=== PATIENT | male | born 1940 | race Caucasian/White ===

== ENCOUNTER 2017-08-24 09:14 | Inpatient (IN) | payer MEDICARE ==
[~2017-08-24] VITALS: Ht 177.8 cm; Wt 98.1 kg
[~2017-08-24 09:14] MED LIST: AMLO5 PO; BOSULIF500 MG PO; Belladonna-Opi1 EACH PR; CEPH500 PO; Coumadin3 MG PO; DICL75ER PO; DIGO.25 PO; DUTA.5 PO; EC-Naprosyn375 MG PO; FURO40 PO; GABA100 PO; GLIM4 PO; GLIP5ER PO; HYDACE5 PO; HYDR1TAB94 PO; ICLUSIG15 MG PO; LAVAP17G PO; LEVFLO500 PO; LISI20 PO; METF500 PO; MIRALAX17 GM PO; Norco 10-325 T1 EACH PO; OMEP20ER PO; POTA10T PO; POTCHL10ER PO; PRED20 PO; TAMS.4ER PO; Tasigna200 MG PO; WARF2.5 PO
[2017-08-24 10:42] LABS: BASOPHILS ABSOLUTE AUTO 0.07 K/mm3 (0.00-0.23); BASOPHILS PERCENT AUTO 1 % (0-2); EOSINOPHILS ABSOLUTE AUTO 0.11 K/mm3 (0.00-0.68); EOSINOPHILS PERCENT AUTO 1 % (0-6); Hematocrit 40.2 % (37.0-53.0); Hemoglobin 12.6 g/dL (13.5-17.5); IMMATURE GRAN ABSOLUTE AUTO 0.04 K/mm3 (0.00-0.10); IMMATURE GRAN PERCENT AUTO 1 % (0-1); LYMPHOCYTES ABSOLUTE AUTO 0.91 K/mm3 (0.84-5.20); LYMPHOCYTES PERCENT AUTO 11 % (21-46); MONOCYTES ABSOLUTE AUTO 0.58 K/mm3 (0.16-1.47); MONOCYTES PERCENT AUTO 7 % (4-13); Mean Corpuscular HGB 26.8 pg (26.0-34.0); Mean Corpuscular HGB Conc 31.3 g/dL (31.5-36.5); Mean Corpuscular Volume 85 fL (80-100); Mean Platelet Volume 11.6 fL (9.1-12.4); NEUTROPHILS ABSOLUTE AUTO 6.74 K/mm3 (1.96-9.15); NEUTROPHILS PERCENT AUTO 80 % (41-73); Platelet Count 63 K/mm3 (150-400); RDW Coefficient Variation 15.5 % (11.7-14.2); RDW Standard Deviation 47.8 fL (35.1-46.3); Red Blood Cell Count 4.71 M/mm3 (4.30-5.90); White Blood Cell Count 8.45 K/mm3 (4.00-11.30)
[2017-08-24] MEDS ORDERED: OMEPRAZOLE MAGN20 MG PO (10:55)
[2017-08-24 11:55] LABS: Alanine Aminotransfer (ALT/SGP 18 U/L (12-78); Albumin/Globulin Ratio 0.7 (0.8-1.8); Alk Phos 187 U/L (50-136); Anion Gap 10 mmol/L (6-16); Aspartate Aminotrans (AST/SGOT 15 U/L (12-37); Bilirubin, Total 0.7 mg/dL (0.1-1.0); Blood Urea Nitrogen 17 mg/dL (8-24); Bun/Creatinine Ratio 16.5 (12.0-20.0); CO2, Blood 25 mmol/L (21-32); Calcium, Blood 8.5 mg/dL (8.5-10.1); Chloride, Blood 105 mmol/L (98-108); Creatinine, Blood 1.03 mg/dL (0.60-1.20); Globulin, Blood 4.4 g/dL (2.2-4.0); Glomerular Filtration Rate >60 (60-); Glucose, Blood 145 mg/dL (70-99); Potassium, Blood 4.4 mmol/L (3.5-5.5); Sodium, Blood 140 mmol/L (136-145); Total Protein, Blood 7.4 g/dL (6.4-8.2); Troponin I <0.015 ng/mL (0.000-0.040)
[2017-08-24 14:30] LABS: International Normalized Ratio 1.09; Prothrombin Time Results 11.4 Sec (9.7-11.5)
[2017-08-26] MEDS ORDERED: XARELTO15 MG PO (09:50)
[2017-08-27 16:09] LABS: A/G RATIO 0.9 (0.7-1.7); ALBUMIN 3.3 g/dL (2.9-4.4); ALPHA-1-GLOBULIN 0.3 g/dL (0.0-0.4); BETA GLOBULIN 0.8 g/dL (0.7-1.3); GAMMA GLOBULIN 1.4 g/dL (0.4-1.8); GLOBULIN, TOTAL 3.6 g/dL (2.2-3.9); M-SPIKE Not Observed g/dL (Not Observed); PROTEIN, TOTAL, SERUM 6.9 g/dL (6.0-8.5)
== END 2017-08-26 13:50 | disposition home or self-care (01) | DRG 175 ==
LOC: ER 09:14 → MEDS 09:15 → ER 13:38 → MEDS 13:38 → ENPENDDIS 08-26 09:00 → MEDS 08-26 13:50
PROVIDERS: Emergency Medicine; Internal Medicine
DX: I26.99 Other pulmonary embolism without acute cor pulmonale (principal); J96.01 Acute respiratory failure with hypoxia; C91.10 Chronic lymphocytic leukemia of B-cell type not having achieved remission; D69.6 Thrombocytopenia, unspecified; D64.9 Anemia, unspecified; E11.9 Type 2 diabetes mellitus without complications; Z85.89 Personal history of malignant neoplasm of other organs and systems; I51.9 Heart disease, unspecified
CPT/HCPCS: 36415; 71046; 71260; 74177; 80053; 82947; 83690; 83880; 84165; 84484; 85025; 85379; 85610; 85730; 93005; 93010; 93306; 94761; 96365; 96366; 96376; 99285; G0103; G0378; J1644; Q9967

== ENCOUNTER 2017-10-16 09:39 | Day surgery (SDC) | payer MEDICARE, SELFPAY ==
[~2017-10-16 09:39] MED LIST changes: +OMEPRAZOLE MAGN20 MG PO; +XARELTO15 MG PO
== END 2017-10-16 22:37 | disposition home or self-care (01) ==
LOC: CT 09:39
PROC: 07B53ZX Excision of Right Axillary Lymphatic, Percutaneous Approach, Diagnostic (ICD-10-PCS; principal; 2017-10-16)
DX: I88.9 Nonspecific lymphadenitis, unspecified (principal); C92.10 Chronic myeloid leukemia, BCR/ABL-positive, not having achieved remission; D69.3 Immune thrombocytopenic purpura; I26.99 Other pulmonary embolism without acute cor pulmonale
CPT/HCPCS: 21550; 77012